=== PATIENT | female | born 1990 | race Asian ===

== ENCOUNTER → 2018-07-30 | Outpatient (CLI) | payer OTHER ==
--- NOTE | 2018-07-30 15:56 | RAD ---
Obstetric pelvic ultrasound 07/30/2018 INDICATION: Size and dates. LMP 01/09/2018 with EDC of 10/16/2018 COMPARISON: None available TECHNIQUE: Sonographic evaluation of the pelvis was performed utilizing grayscale imaging. FINDINGS: Placental localization: Anterior right lateral wall anatomy: movement: Visualized Cardiac activity: Visualized Cardiac rate: 153 bpm 4 chambered heart: Visualized breathing: Visualized Three-vessel CORD: Visualized Cord insertion: Normal bladder: Visualized with fluid STOMACH: Visualized on the left Kidneys: Visualized Spine: Visualized brain: Visualized position: Cephalic Cervical length: 6.0 cm FRIDA: Utilizing 4 quadrant technique 16.5 cm, normal Biparietal diameter: 7.4 cm compatible with a gestational age of 29 weeks 6 days Head circumference: 27.3 cm compatible with a gestational age of 29 weeks 6 days Abdominal circumference: 23.9 cm/s compatible with a gestational age of 28 weeks 1 day Femur length: 5.5 cm compatible with a gestational age of 29 weeks 1 day HC/AC ratio: 1.15 Estimated weight: 1282 g Gestational age: 29 weeks 2 days Sonographic EDC: 10/13/2018 IMPRESSION: Single viable intrauterine is identified with heart tones measuring 153 bpm and estimated gestational age of 29 weeks 2 days by ultrasound with EDC of 10/13/2018. Electronically signed by: Aiyana Espinoza MD (07/30/2018 3:52 PM) [facility]
== END | disposition home or self-care (01) ==
LOC: US 10:15
PROVIDERS: ATTEND Obstetrics & Gynecology
DX: Z34.83 Encounter for supervision of other normal pregnancy, third trimester (principal); Z36.89 Encounter for other specified antenatal screening; Z3A.29 29 weeks gestation of pregnancy
CPT/HCPCS: 76805